=== PATIENT | female | born 1980 | race Caucasian/White ===

== ENCOUNTER 2021-03-31 13:13 | Outpatient (CLI) | payer OTHER ==
[~2021-03-31] VITALS: Ht 157.5 cm; Wt 81.6 kg
[~2021-03-31 13:13] MED LIST: ALBUTEROL 90 MCG/ACT 8GM HFA INHALER INH PRN; ALBUTEROL SULFATE 2.5 MG/0.5 ML INH NEB SOLN INH PRN; CASIRIVIMAB (REGN10933) 600 MG, IMDEVIMAB (REGN10987) 600 MG in NS 250 ML IV ONE; EPINEPHrine INJ 1 MG/ML 1ML AMP IM PRN; NS 1,000 ML IV SCH; diphenhydrAMINE 50MG/ML VIAL (J1200) IV PRN; methylPREDNISolone 125MG 2ML VIAL IV PRN
[2021-03-31 13:35] VITALS: BP 127/75
[2021-03-31 14:05] VITALS: BP 115/74
[2021-03-31 14:35] VITALS: BP 118/72
[2021-03-31 15:35] VITALS: BP 144/92
== END 2021-03-31 15:35 | disposition home or self-care (01) ==
LOC: MERGE 13:13 → M OPCLI4PR 13:13
PROVIDERS: ATTEND Internal Medicine
DX: U07.1 COVID-19 (principal)

== ENCOUNTER 2021-06-01 15:18 | Emergency (ER) | payer BC, OTHER ==
[~2021-06-01] VITALS: Ht 158.8 cm; Wt 83.9 kg
[2021-06-01] MEDS ORDERED: LEXA1TAB2 (15:29)
[2021-06-01 18:25] VITALS: BP 123/65
== END 2021-06-01 18:26 | disposition home or self-care (01) ==
LOC: M ED 15:18
DX: M79.662 Pain in left lower leg (principal); F41.9 Anxiety disorder, unspecified; Z79.899 Other long term (current) drug therapy

== ENCOUNTER → 2021-07-06 | Outpatient (REF) ==
[~2021-07-06] MED LIST changes: -ALBUTEROL 90 MCG/ACT 8GM HFA INHALER INH PRN; -ALBUTEROL SULFATE 2.5 MG/0.5 ML INH NEB SOLN INH PRN; -CASIRIVIMAB (REGN10933) 600 MG, IMDEVIMAB (REGN10987) 600 MG in NS 250 ML IV ONE; -EPINEPHrine INJ 1 MG/ML 1ML AMP IM PRN; +LEXA1TAB2; -NS 1,000 ML IV SCH; -diphenhydrAMINE 50MG/ML VIAL (J1200) IV PRN; -methylPREDNISolone 125MG 2ML VIAL IV PRN
== END ==
LOC: M EMP 09:57
PROVIDERS: ATTEND Family Medicine
DX: Z11.52 Encounter for screening for COVID-19 (principal)

== ENCOUNTER → 2021-08-03 | Outpatient (REF) | payer OTHER | LOC: M LAB REF 16:17 | PROVIDERS: ATTEND Internal Medicine | DX: N39.0 Urinary tract infection, site not specified (principal) ==

== ENCOUNTER → 2021-08-05 | Outpatient (CLI) | payer OTHER ==
[2021-08-05 15:19] LABS: BASO # 0.1 10^3/uL (0.0-0.2); BASO % 0.6 % (0.0-1.0); EOS # 0.1 10^3/uL (0.0-0.5); EOS % 1.3 % (0.0-3.0); HEMATOCRIT 39.8 % (36.0-47.0); HEMOGLOBIN 13.3 g/dl (12.0-15.5); LYMPH % 35.5 % (24.0-44.0); MEAN CORPUSCULAR HEMOGLOBIN 28.9 pg (27.0-33.0); MEAN CORPUSCULAR HGB CONC 33.4 g/dl (32.0-36.5); MEAN CORPUSCULAR VOLUME 86.3 fl (80.0-96.0); MONO # 0.7 10^3/uL (0.0-0.8); MONO % 7.6 % (2.0-8.0); NEUTROPHILS # 4.7 10^3/uL (1.5-8.5); NEUTROPHILS % 54.6 % (36.0-66.0); PLATELET COUNT, AUTOMATED 266 10^3/uL (150-450); RED BLOOD COUNT 4.61 10^6/uL (4.00-5.40); WHITE BLOOD COUNT 8.6 10^3/uL (4.0-10.0)
[2021-08-05 15:36] LABS: FREE T4 0.96 NG/DL (0.76-1.46); THYROID STIMULATING HORMONE 0.763 uIU/ML (0.358-3.740)
== END ==
LOC: M PLALAB 12:47
PROVIDERS: ATTEND Obstetrics & Gynecology
DX: N92.0 Excessive and frequent menstruation with regular cycle (principal)

== ENCOUNTER → 2021-09-27 | Outpatient (CLI) | payer OTHER | LOC: M WHC 07:30 | PROVIDERS: ATTEND Nurse Practitioner Family | DX: N63.11 Unspecified lump in the right breast, upper outer quadrant (principal) ==

== ENCOUNTER → 2022-01-10 | Outpatient (REF) | LOC: M LABSMTC 10:23 | PROVIDERS: ATTEND Family Medicine | DX: Z11.52 Encounter for screening for COVID-19 (principal) ==

== ENCOUNTER → 2022-02-10 | Outpatient (REF) | payer OTHER ==
[2022-02-11 13:26] LABS: PERCENT SATURATION 17.4 % (13.2-45.0)
== END ==
LOC: M LAB REF 12:02
PROVIDERS: ATTEND Internal Medicine
DX: R53.83 Other fatigue (principal); D50.9 Iron deficiency anemia, unspecified

== ENCOUNTER → 2022-04-12 | Outpatient (CLI) | payer OTHER | LOC: M WHC 07:35 | PROVIDERS: ATTEND Nurse Practitioner Family | DX: N63.11 Unspecified lump in the right breast, upper outer quadrant (principal) ==

== ENCOUNTER → 2022-06-07 | Outpatient (CLI) | payer OTHER | LOC: M SLEEP HO 11:54 | PROVIDERS: ATTEND Internal Medicine Pulmonary Disease | DX: R06.83 Snoring (principal) ==

== ENCOUNTER → 2022-07-19 | Outpatient (CLI) | payer OTHER | LOC: M WHC 10:03 | PROVIDERS: ATTEND Nurse Practitioner Family | DX: N63.22 Unspecified lump in the left breast, upper inner quadrant (principal) ==

== ENCOUNTER 2022-09-29 07:58 | Observation (INO) | payer OTHER ==
[~2022-09-29] VITALS: Ht 157.5 cm; Wt 80.7 kg
[~2022-09-29 07:58] MED LIST changes: +HEPARIN SOD (PORCINE) 5000UNITS/ML 1ML VIAL/SYRINGE SQ ONE; -LEXA1TAB2; +LEXA1TAB2 PO; +ceFAZolin SOD 2 GM in IV 1 EA IV ONE
[2022-09-29] MEDS ORDERED: LR 1,000 ML IV SCH ×2 (08:30→14:35)
[2022-09-29] MEDS ORDERED: VITA500079 PO (08:37)
[2022-09-29] MEDS ORDERED: BACI1CAP PO (08:37)
[2022-09-29] MEDS ORDERED: CALC500T38 PO (08:37)
[2022-09-29] MEDS ORDERED: HOME MED LIST COMPLETE! XX SCH (08:40)
[2022-09-29] MEDS ORDERED: ONDANSETRON 4MG 2ML VIAL As Ordered ONE (09:11)
[2022-09-29] MEDS ORDERED: fentaNYL 250 MCG/5 ML INJECTION As Ordered ONE (09:11)
[2022-09-29] MEDS ORDERED: propofoL 200 MG/20 ML VIAL As Ordered ONE (09:11)
[2022-09-29] MEDS ORDERED: ROCURONIUM BROMIDE 50MG/5ML VIAL As Ordered ONE ×3 (09:11→11:50)
[2022-09-29] MEDS ORDERED: LIDOCAINE 2% 100MG/5ML SDV (FOR ANES.) As Ordered ONE (09:11)
[2022-09-29] MEDS ORDERED: MIDAZOLAM INJ 2MG/2ML VIAL As Ordered ONE (09:11)
[2022-09-29] MEDS ORDERED: SEVOFLURANE INHAL SOLN 250 ML BTL As Ordered ONE (10:06)
[2022-09-29] MEDS ORDERED: BUPIVACAINE LIPOSOME/PF 1.3% 20ML VIAL (13.3MG/ML)(EXPAREL) As Ordered ONE (10:07)
[2022-09-29] MEDS ORDERED: GENTAMICIN SULF 80MG/2ML VIAL As Ordered ONE (10:07)
[2022-09-29] MEDS ORDERED: BUPIVACAINE HCL 0.25% 10ML VIAL As Ordered ONE (10:07)
[2022-09-29] MEDS ORDERED: EPINEPHrine INJ 1 MG/ML 1ML AMP As Ordered ONE (10:49)
[2022-09-29] MEDS ORDERED: LIDOCAINE 1% MDV 20ML VIAL As Ordered ONE (10:49)
[2022-09-29] MEDS ORDERED: PHENYLephrine 500MCG 5ML (100MCG/ML) SYRINGE As Ordered ONE (11:13)
[2022-09-29] MEDS ORDERED: ePHEDrine SULFATE 25 MG/5 ML(5MG/ML) SYRINGE As Ordered ONE (11:13)
[2022-09-29] MEDS ORDERED: HYDROmorphone HCL 2MG/ML 1ML VIAL As Ordered ONE (11:33)
[2022-09-29] MEDS ORDERED: SUGAMMADEX SODIUM 500 MG/5 ML VIAL (BRIDION) As Ordered ONE (11:45)
[2022-09-29] MEDS ORDERED: LACRILUBE (AKWA TEARS) OPHTH OINT 3.5GM As Ordered ONE (11:45)
[2022-09-29] MEDS ORDERED: oxyCODONE 5MG TAB PO PRN (14:35)
[2022-09-29] MEDS ORDERED: fentaNYL 100 MCG/2 ML INJECTION IV PRN (14:35)
[2022-09-29] MEDS ORDERED: ONDANSETRON 4MG 2ML VIAL IV PRN ×2 (14:35→14:40)
[2022-09-29] MEDS ORDERED: HYDROMORPHONE HCL 0.5 MG/ 0.5 ML SYRINGE IV PRN (14:35)
[2022-09-29] MEDS ORDERED: ACETAMINOPHEN TAB 650MG DOSE (2X325MG) PO PRN (14:40)
[2022-09-29] MEDS ORDERED: PERCOCET 5MG/325MG TAB PO PRN (14:40)
[2022-09-29] MEDS ORDERED: ceFAZolin SOD 2 GM in IV 1 EA IV ONE (15:00)
[2022-09-29 16:10] VITALS: BP 126/78; TEMP 98.1; O2SAT 93
[2022-09-29] MEDS: LR 1,000 ML IV SCH (16:11)
[2022-09-29 16:38] VITALS: BP 114/71; TEMP 97.5; O2SAT 94
[2022-09-29 17:08] VITALS: BP 108/69; TEMP 97.7; O2SAT 94
[2022-09-29 18:14] VITALS: BP 118/75; TEMP 97.9; O2SAT 95
[2022-09-29 19:01] VITALS: BP 115/74; TEMP 98.2; O2SAT 95
[2022-09-29] MEDS: traMADol 50 MG TAB PO PRN (19:14)
[2022-09-29 19:56] VITALS: BP 114/76; TEMP 97.9; O2SAT 94
[2022-09-30 02:00] VITALS: BP 113/77; TEMP 98.2; O2SAT 96
[2022-09-30] MEDS: traMADol 50 MG TAB PO PRN (02:09)
[2022-09-30 05:51] VITALS: BP 111/77; TEMP 98.2; O2SAT 96
[2022-09-30] MEDS: LR 1,000 ML IV SCH (06:00)
[2022-09-30 10:00] VITALS: BP 111/76; TEMP 98.3; O2SAT 96
[2022-09-30] MEDS ORDERED: OXYC1TAB23 PO (10:07)
== END 2022-09-30 10:45 | disposition home or self-care (01) ==
LOC: M SDC 07:58 → M ED INP 14:37 → M MS5PR 15:55
PROVIDERS: ADMIT Plastic Surgery Surgery of the Hand; ATTEND Plastic Surgery Surgery of the Hand
DX: N62 Hypertrophy of breast (principal); Q83.3 Accessory nipple; M54.6 Pain in thoracic spine; M54.2 Cervicalgia; F41.1 Generalized anxiety disorder; F32.A Depression, unspecified; F17.210 Nicotine dependence, cigarettes, uncomplicated; Z79.899 Other long term (current) drug therapy
CPT/HCPCS: 19120; 19318; 87635; 88302; 88305; 96374; C9290; J0171; J0690; J1100; J1170; J1580; J2250; J2370; J2405; J3010; S0020

== ENCOUNTER → 2023-08-23 | Outpatient (CLI) | payer OTHER ==
[~2023-08-23] MED LIST changes: +BACI1CAP PO; +CALC500T38 PO; -HEPARIN SOD (PORCINE) 5000UNITS/ML 1ML VIAL/SYRINGE SQ ONE; +OXYC1TAB23 PO; +VITA500079 PO; -ceFAZolin SOD 2 GM in IV 1 EA IV ONE
== END ==
LOC: M WHC 07:30
PROVIDERS: ATTEND Internal Medicine
DX: Z12.31 Encounter for screening mammogram for malignant neoplasm of breast (principal)

== ENCOUNTER → 2023-09-12 | Outpatient (CLI) | payer OTHER | LOC: M WHC 13:01 | PROVIDERS: ATTEND Internal Medicine | DX: R92.8 Other abnormal and inconclusive findings on diagnostic imaging of breast (principal) ==

== ENCOUNTER → 2023-09-21 | Outpatient (CLI) | payer OTHER | LOC: M LAB 15:40 | PROVIDERS: ATTEND Nurse Practitioner Adult Health | DX: R10.9 Unspecified abdominal pain (principal) ==

== ENCOUNTER → 2023-09-21 | Outpatient (REF) | payer OTHER | LOC: M LAB REF 16:26 | PROVIDERS: ATTEND Nurse Practitioner Adult Health | DX: R10.9 Unspecified abdominal pain (principal) ==

== ENCOUNTER → 2023-10-02 | Outpatient (CLI) | payer OTHER ==
[~2023-10-02] MED LIST changes: +PROHANCE 279.3MG/ML 15ML VIAL ONE
== END ==
LOC: M PLAIMG 14:00
PROVIDERS: ATTEND Internal Medicine
DX: R92.8 Other abnormal and inconclusive findings on diagnostic imaging of breast (principal)

== ENCOUNTER 2023-10-18 09:16 | Day surgery (SDC) | payer OTHER ==
[~2023-10-18] VITALS: Ht 160 cm; Wt 79.6 kg
[~2023-10-18 09:16] MED LIST changes: +D32000CA PO; +FLUO-365 PO; +KP F1200 PO; +MAGN400C2 PO; -PROHANCE 279.3MG/ML 15ML VIAL ONE
[2023-10-18] MEDS: NS 1,000 ML IV ONE (09:55)
[2023-10-18] MEDS ORDERED: PAXI20TA30 PO (09:58)
[2023-10-18] MEDS ORDERED: propofoL 200 MG/20 ML VIAL As Ordered ONE (10:54)
[2023-10-18] MEDS ORDERED: LIDOCAINE 2% 100MG/5ML SDV (FOR ANES.) As Ordered ONE (10:54)
[2023-10-18 11:21] VITALS: TEMP 99.1
[2023-10-18 11:45] VITALS: BP 127/75; O2SAT 100
== END 2023-10-18 11:52 | disposition home or self-care (01) ==
LOC: M OPP 09:16
PROVIDERS: ATTEND Surgery
DX: Z12.11 Encounter for screening for malignant neoplasm of colon (principal); Z80.0 Family history of malignant neoplasm of digestive organs; D12.6 Benign neoplasm of colon, unspecified; F17.200 Nicotine dependence, unspecified, uncomplicated; Z79.899 Other long term (current) drug therapy

== ENCOUNTER → 2024-01-15 | Outpatient (CLI) | payer OTHER ==
[~2024-01-15] MED LIST changes: +PAXI20TA30 PO
== END ==
LOC: M PLAIMG 15:15
PROVIDERS: ATTEND Physician Assistant
DX: M25.572 Pain in left ankle and joints of left foot (principal)

== ENCOUNTER → 2024-02-15 | Outpatient (REF) | LOC: M EMP 08:43 | PROVIDERS: ATTEND Family Medicine | DX: Z11.52 Encounter for screening for COVID-19 (principal) ==

== ENCOUNTER → 2024-06-25 | Outpatient (CLI) | payer OTHER | LOC: M SOG 07:51 | PROVIDERS: ATTEND Physician Assistant | DX: M25.572 Pain in left ankle and joints of left foot (principal) ==

== ENCOUNTER → 2024-12-03 | Outpatient (CLI) | payer OTHER | LOC: M WHC 12:56 | PROVIDERS: ATTEND Nurse Practitioner Family | DX: Z12.31 Encounter for screening mammogram for malignant neoplasm of breast (principal); R92.323 Mammographic fibroglandular density, bilateral breasts | CPT/HCPCS: 77066; G0279 ==

== ENCOUNTER 2025-04-03 15:52 | Emergency (ER) | payer OTHER ==
[~2025-04-03] VITALS: Ht 157.5 cm; Wt 83.7 kg
[2025-04-03] MEDS ORDERED: PROG1CAP8 (16:06)
[2025-04-03] MEDS ORDERED: ESTR1DIS3 (16:06)
[2025-04-03] MEDS: diphenhydrAMINE 50 MG/ML VIAL IV ONE (19:25)
[2025-04-03] MEDS: KETOROLAC 30 MG/ML 1 ML VIAL IV ONE (19:25)
[2025-04-03] MEDS: NS (Normal Saline) 0.9% 1,000 ML IV ONE (19:51)
[2025-04-03 21:12] VITALS: BP 130/80; TEMP 98.5; O2SAT 98
== END 2025-04-03 21:19 | disposition home or self-care (01) ==
LOC: M ED 15:52
DX: R51.9 Headache, unspecified (principal); F41.9 Anxiety disorder, unspecified; F32.A Depression, unspecified; F17.210 Nicotine dependence, cigarettes, uncomplicated; F12.10 Cannabis abuse, uncomplicated; Z79.899 Other long term (current) drug therapy